=== PATIENT | female | born 1975 | race American Indian/Alaskan Native ===

== ENCOUNTER 2017-11-03 03:11 | Observation (INO) | payer OTHER ==
[2017-11-03 04:59] LABS: Basophils % (Auto) 0.1 % (0.0-1.8); Lymphocytes # (Auto) 1.4 K/mm3 (1.2-5.4); Lymphocytes % (Auto) 7.1 % (13.4-35.0); Mean Corpuscular HGB Conc 32 % (30-34); Mean Corpuscular Volume 80 fl (79-97); Monocytes # (Auto) 0.8 K/mm3 (0.0-0.8); Monocytes % (Auto) 3.8 % (0.0-7.3); Platelet Count 330 K/mm3 (140-440); Red Blood Count 2.31 M/mm3 (3.65-5.03)
[2017-11-03] MEDS ORDERED: NACL 0.9% 1000 ML 1,000 ML IV ONE (05:20)
[2017-11-03 05:31] LABS: Hematocrit 18.5 % (30.3-42.9); Hemoglobin 5.8 gm/dl (10.1-14.3); Mean Corpuscular Hemoglobin 25 pg (28-32); Red Cell Distribution Width 21.2 % (13.2-15.2)
[2017-11-03] MEDS ORDERED: NACL 0.9% 500 ML 500 ML IV ONE (07:06)
[2017-11-03 08:46] LABS: HCG Qualitative,Urine Negative (Negative)
[2017-11-03 08:50] LABS: Bacteria,Urine 4+ /HPF (Negative); Bilirubin,Urine NEG (Negative); Blood,Urine LG (Negative); Color,Urine Red (Yellow); Mucus,Urine FEW /HPF; Urobilinogen,Urine < 2.0 mg/dL (<2.0)
[2017-11-03 08:53] LABS: RBC,Urine > 182.0 /HPF (0.0-6.0); WBC,Urine > 182.0 /HPF (0.0-6.0)
--- NOTE | 2017-11-03 09:19 | Emergency Department Report ---
ED Female HPI - General Chief complaint: Vaginal Bleeding Stated complaint: LOW BP/VAGINAL BLEEDING Time Seen by Provider: 11/03/17 06:45 Source: patient, EMS Mode of arrival: Stretcher Limitations: No Limitations - History of Present Illness Initial comments: Has had heavy vaginal bleeding for the past 3 days. Today, patient with a 1-1/ 2 packs of the super Maxi pads. The vaginal bleeding is bright red. She has already passed out a couple times today. She was started on a new oral contraceptive a couple weeks ago to help with the symptoms. She does have fibroids. Has a history of heavy menstrual periods, but this is worse than usual. Not on blood thinners. - Related Data Home Medications Medication Instructions Recorded Confirmed Last Taken Ferrous Sulfate 325 mg PO DAILY 11/03/17 11/03/17 Unknown Ibuprofen 800 mg PO Q6H 11/03/17 11/03/17 Unknown Allergies Allergy/AdvReac Type Severity Reaction Status Date / Time No Known Allergies Allergy Verified 11/03/17 03:57 ED Review of Systems ROS: Stated complaint: LOW BP/VAGINAL BLEEDING Other details as noted in HPI Comment: All other systems reviewed and negative Constitutional: malaise, weakness Genitourinary: other (vaginal bleeding) ED Past Medical Hx - Past Medical History Previous Medical History?: Yes Additional medical history: Anemia. uterine fibroids - Surgical History Past Surgical History?: No - Social History Smoking Status: Never Smoker Substance Use Type: Alcohol - Medications Home Medications: Home Medications Medication Instructions Recorded Confirmed Last Taken Type Ferrous Sulfate 325 mg PO DAILY 11/03/17 11/03/17 Unknown History Ibuprofen 800 mg PO Q6H 11/03/17 11/03/17 Unknown History ED Physical Exam - General Limitations: No Limitations General appearance: alert, in no apparent distress - Head Head exam: Present: atraumatic, normocephalic - Eye Eye exam: Present: normal appearance Pupils: Present: other (pale conjunctiva) - ENT ENT exam: Present: mucous membranes moist - Neck Neck exam: Present: normal inspection - Respiratory Respiratory exam: Present: normal lung sounds bilaterally. Absent: respiratory distress - Cardiovascular Cardiovascular Exam: Present: regular rate, normal rhythm, other (delayed cap refill). Absent: systolic murmur, diastolic murmur, rubs, gallop - GI/Abdominal GI/Abdominal exam: Present: soft, normal bowel sounds. Absent: tenderness - Speculum exam: Present: vaginal bleeding Bi-manual exam: Present: uterine tenderness - Extremities Exam Extremities exam: Present: normal inspection - Back Exam Back exam: Present: normal inspection - Neurological Exam Neurological exam: Present: alert, oriented X3 - Psychiatric Psychiatric exam: Present: normal affect, normal mood - Skin Skin exam: Present: warm, dry, intact, normal color. Absent: rash ED Course Vital Signs 11/03/17 11/03/17 11/03/17 04:59 05:01 05:07 Temperature 98 F Pulse Rate 95 H 93 H 92 H Respiratory 20 17 18 Rate Blood Pressure 111/72 Blood Pressure 111/72 [Left] O2 Sat by Pulse 94 90 97 Oximetry 11/03/17 11/03/17 11/03/17 05:15 05:19 05:22 Temperature Pulse Rate 91 H 98 H Respiratory 20 16 16 Rate Blood Pressure 113/72 Blood Pressure 113/72 [Left] O2 Sat by Pulse 94 98 98 Oximetry 11/03/17 11/03/17 11/03/17 05:30 05:46 06:00 Temperature Pulse Rate 104 H 103 H 115 H Respiratory 21 12 22 Rate Blood Pressure 115/72 115/72 123/57 Blood Pressure [Left] O2 Sat by Pulse 98 100 100 Oximetry 11/03/17 11/03/17 11/03/17 06:16 06:30 08:23 Temperature Pulse Rate 115 H 106 H 118 H Respiratory 18 19 16 Rate Blood Pressure 123/57 131/63 Blood Pressure 101/56 [Left] O2 Sat by Pulse 100 100 100 Oximetry 11/03/17 12:34 Temperature 99.2 F Pulse Rate 88 Respiratory 16 Rate Blood Pressure Blood Pressure 102/58 [Left] O2 Sat by Pulse 100 Oximetry ED Medical Decision Making - Lab Data Result diagrams: 11/03/17 04:31 - Medical Decision Making 41-year-old female with past history of anemia, uterine fibroids presents to the ER with vaginal bleeding and syncope. On presentation, patient's hypotensive with a systolic blood pressure in the 70s. She is tachycardic. Given history of vaginal bleeding, it is concerning for hemorrhagic shock. Patient is given a liter IV fluids. Hemoglobin was 6. Patient's baseline is 8. She has been ordered 2 units of blood. Pelvic exam shows multiple dark red blood clots. Once it was cleared, age with minimal vaginal bleeding. Critical care attestation.: If time is entered above; I have spent that time in minutes in the direct care of this critically ill patient, excluding procedure time. ED Disposition Clinical Impression: Menorrhagia, Hemorrhagic shock, Anemia Disposition: OP ADMIT IP TO THIS HOSP Is pt being admited?: Yes Does the pt Need Aspirin: No Condition: Stable
--- NOTE | 2017-11-03 11:53 | History and Physical Report ---
History of Present Illness Date of examination: 11/03/17 Date of admission: 11/03/17 10:09 Chief complaint: Heavy vaginal bleeding, hypotension History of present illness: Very pleasant morbidly obese 41-year-old female patient with history of fibroid uterus and menorrhagia follows with private ASSISTANT SURVEYOR, with history of fibroid uterus presented to the emergency room with heavy vaginal bleeding , hypotension and generalized weakness Patient was initially evaluated, noted to have severe anemia Admitted to the hospital for blood transfusion and for ASSISTANT SURVEYOR evaluation Patient complains of generalized weakness and mild headache Denies dizziness syncope or near syncope Did not receive blood transfusions in the past Denies chest pain , shortness of breath or cough Past History Past Medical History: anemia, other (menorrhagia, fibroid uterus) Past Surgical History: No surgical history Social history: lives with family. denies: smoking, alcohol abuse, prescription drug abuse Family history: hypertension Medications and Allergies Allergies Allergy/AdvReac Type Severity Reaction Status Date / Time No Known Allergies Allergy Verified 11/03/17 03:57 Home Medications Medication Instructions Recorded Confirmed Last Taken Type Ferrous Sulfate 325 mg PO DAILY 11/03/17 11/03/17 Unknown History Ibuprofen 800 mg PO Q6H 11/03/17 11/03/17 Unknown History Review of Systems Constitutional: fatigue, weakness, no weight loss, no weight gain Ears, nose, mouth and throat: no nasal congestion, no nasal discharge Cardiovascular: lightheadedness, no chest pain, no orthopnea, no palpitations, no shortness of breath Respiratory: no cough, no shortness of breath Gastrointestinal: no abdominal pain, no nausea, no vomiting Genitourinary Female: menorrhagia, other (heavy vaginal bleeding) Menstruation: currently menstrual Musculoskeletal: no myalgias, no arthritis Integumentary: no rash, no lesions Neurological: weakness, other (Gen. weakness) Psychiatric: no anxiety, no depression Endocrine: no cold intolerance, no heat intolerance, no polydipsia, no polyuria Hematologic/Lymphatic: no easy bruising, no easy bleeding Allergic/Immunologic: no urticaria, no allergic rhinitis Exam - Constitutional Vitals: Temp Pulse Resp BP Pulse Ox 98 F 118 H 16 101/56 100 11/03/17 05:07 11/03/17 08:23 11/03/17 08:23 11/03/17 08:23 11/03/17 08:23 General appearance: Present: no acute distress, well-nourished, obese (morbidly obese) - EENT Eyes: Present: PERRL, EOM intact - Neck Neck: Present: supple, normal ROM - Respiratory Respiratory effort: normal Respiratory: bilateral: diminished, negative: rales, rhonchi, wheezing - Cardiovascular Rhythm: regular Heart Sounds: Present: S1 & S2 - Extremities Extremities: no ischemia, No edema - Abdominal General gastrointestinal: Present: soft, non-tender, non-distended, normal bowel sounds - Integumentary Integumentary: Present: clear, warm, pale - Musculoskeletal Musculoskeletal: strength equal bilaterally, generalized weakness - Psychiatric Psychiatric: appropriate mood/affect, cooperative - Neurologic Neurologic: CNII-XII intact, moves all extremities Results - Labs CBC & Chem 7: 11/03/17 04:31 Labs: Abnormal lab results 11/03/17 11/03/17 11/03/17 Range/Units 04:31 04:45 08:30 WBC 20.0 H (4.5-11.0) K/mm3 RBC 2.31 L (3.65-5.03) M/mm3 Hgb 5.8 L* (10.1-14.3) gm/dl Hct 18.5 L* (30.3-42.9) % MCH 25 L (28-32) pg RDW 21.2 H (13.2-15.2) % Lymph % (Auto) 7.1 L (13.4-35.0) % Seg Neutrophils % 89.0 H (40.0-70.0) % Seg Neutrophils # 17.8 H (1.8-7.7) K/mm3 Urine WBC (Auto) > 182.0 H (0.0-6.0) /HPF Crossmatch See Detail Assessment and Plan --Acute blood loss anemia; Type and cross and transfuse 2 units of PRBC Closely monitor H&H and transfuse additional when necessary --Hypotension; probably secondary to hypovolemia and bleeding Blood transfusion, IV fluids, closely monitor --Menorrhagia; patient has active vaginal bleeding Supportive care, ASSISTANT SURVEYOR evaluation and recommendations Consider Provera daily if needed --History of uterine fibroids; ASSISTANT SURVEYOR evaluation inpatient versus outpatient --Iron deficiency anemia; ferrous sulfate twice a day --DVT prophylaxis; SCDs Follow ASSISTANT SURVEYOR evaluation and recommendations Closely monitor the patient and adjust the management as needed
[2017-11-03] MEDS ORDERED: AMBIEN PO PRN (13:56)
--- NOTE | 2017-11-03 14:14 | Consultation ---
History of Present Illness Consult date: 11/03/17 Reason for consult: menorrhagia History of present illness: Asked to see this 41 y/o G0 admitted for heavy vaginal bleeding. Essential hx is patient with known hx of AUB/HMB due to fibroids. She has an OBGYN and was previously worked up for surgery but lost her insurance. She is nowing seeing a new OBGYN in [facility] (Dr. Jennifer Mccarthy?) and is being worked up for surgery. She presented to the ED due to heavy VB as above x ~ 48 hrs. In the ED, her hemoglobin was ~ 6. She is being admitted for PRBC transfusion. On the floor, her VB has markedly reduced. She has very mild flow now. 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 denies: chlamydia, gonorrhea, hepatitis B, hepatitis C, HIV, syphilis, trichomonas Social history: single, full code. denies: smoking Medications and Allergies Allergies Allergy/AdvReac Type Severity Reaction Status Date / Time No Known Allergies Allergy Verified 11/03/17 03:57 Home Medications Medication Instructions Recorded Confirmed Last Taken Type Ferrous Sulfate 325 mg PO DAILY 11/03/17 11/03/17 Unknown History Ibuprofen 800 mg PO Q6H 11/03/17 11/03/17 Unknown History Active Meds: Active Medications Famotidine (Pepcid) 20 mg PO QDAY PEARL Ferrous Sulfate (Feosol) 325 mg PO QDAY PEARL Medroxyprogesterone Acetate (Provera) 10 mg PO QDAY PEARL Pantoprazole (Protonix) 40 mg PO QDAY PEARL Zolpidem Tartrate (Ambien) 5 mg PO QHS PRN PRN Reason: Sleep Review of Systems Constitutional: no fever Cardiovascular: no chest pain, no orthopnea, no syncope, no shortness of breath , no dyspnea on exertion, no high blood pressure Respiratory: no cough, no cough with sputum Gastrointestinal: no abdominal pain, no nausea, no vomiting, no heartburn, no indigestion Genitourinary: vaginal bleeding, no vaginal discharge, no leakage of fluid - Vital Signs Vital signs: Vital Signs Pulse Resp BP Pulse Ox 95 H 20 111/72 94 11/03/17 04:59 11/03/17 04:59 11/03/17 04:59 11/03/17 04:59 Temp Pulse Resp BP Pulse Ox 99.2 F 88 16 102/58 100 11/03/17 12:34 11/03/17 12:34 11/03/17 12:34 11/03/17 12:34 11/03/17 12:34 - Physical Exam Abdomen: Positive: normal appearance, soft. Negative: distention, tenderness, guarding, rigidity Genitourinary (Female): Positive: normal external genitalia Uterus: Negative: tender Adnexa: both: normal Extremities: Positive: normal Results Result Diagrams: 11/03/17 04:31 Abnormal lab results 11/03/17 11/03/17 11/03/17 Range/Units 04:31 04:45 08:30 WBC 20.0 H (4.5-11.0) K/mm3 RBC 2.31 L (3.65-5.03) M/mm3 Hgb 5.8 L* (10.1-14.3) gm/dl Hct 18.5 L* (30.3-42.9) % MCH 25 L (28-32) pg RDW 21.2 H (13.2-15.2) % Lymph % (Auto) 7.1 L (13.4-35.0) % Seg Neutrophils % 89.0 H (40.0-70.0) % Seg Neutrophils # 17.8 H (1.8-7.7) K/mm3 Urine WBC (Auto) > 182.0 H (0.0-6.0) /HPF Crossmatch See Detail All other labs normal. Assessment and Plan A: 41 y/o G0 with AUB/HMB-L -stable P: -Agree with PRBC transfusion -Patient can be D/kelvin home to follow up with her primary OBGYN -Pls call if bleeding should worsen - Patient Problems (1) Abnormal uterine bleeding (AUB) Current Visit: Yes Status: Acute (2) Fibroids, intramural Current Visit: Yes Status: Acute
[2017-11-03] MEDS: PROTONIX PO SCH (19:30)
--- NOTE | 2017-11-03 20:57 | Ultrasound Report ---
FINAL REPORT EXAM: US PELVIC COMPLETE HISTORY: menorrhagia/?fibroid . LMP 11/01/2017. Vaginal bleeding with fainting. Two week menstruation. Anemia. TECHNIQUE: Ultrasound of the pelvis using transabdominal and transvaginal imaging PRIORS: None. FINDINGS: Uterus: Uterus is enlarged in size and heterogeneous in echogenicity. The uterus measures 13.8 x 8.0 x 7.1 cm in size. There are at least 3 heterogeneous isoechoic focal rounded areas in the uterus. The largest is in the fundus measuring 4.5 x 5.0 x 5.2 cm. The 2nd is in the posterior midbody measuring 1.8 x 2.5 x 2.5 cm. The 3rd is in the lower uterine body anteriorly, possibly within the anterior cervix and measures 4.8 x 2.6 x 3.1 cm. All of these likely represent fibroids. Endometrial stripe: Endometrial stripe is difficult to visualize as it is displaced anteriorly and compressed by the fibroid mentioned above. Ovaries: Both ovaries appear normal in size and echogenicity with normal blood flow bilaterally. The right ovary measures 2.4 x 1.3 x 1.2 cm and the left ovary measures 2.3 x 1.7 x 2.0 cm in size. Other: There is no evidence for solid adnexal mass or free fluid in the cul-de-sac seen. IMPRESSION: 1. Large heterogeneous uterus containing multiple focal fibroids. One of these is probably in the cervical region. 2. Endometrial stripe cannot be adequately visualized due to the presence of the fibroids and displacement.
[2017-11-04 07:11] LABS: Basophils # (Auto) 0.1 K/mm3 (0.0-0.1); Basophils % (Auto) 0.5 % (0.0-1.8); Eosinophils % (Auto) 0.3 % (0.0-4.3); Hemoglobin 6.3 gm/dl (10.1-14.3); Lymphocytes # (Auto) 2.5 K/mm3 (1.2-5.4); Lymphocytes % (Auto) 23.4 % (13.4-35.0); Mean Corpuscular HGB Conc 34 % (30-34); Mean Corpuscular Hemoglobin 28 pg (28-32); Mean Corpuscular Volume 83 fl (79-97); Monocytes # (Auto) 0.7 K/mm3 (0.0-0.8); Platelet Count 223 K/mm3 (140-440); Red Blood Count 2.26 M/mm3 (3.65-5.03)
[2017-11-04 07:23] LABS: Red Cell Distribution Width 20.2 % (13.2-15.2)
[2017-11-04 07:24] LABS: Hematocrit 18.7 % (30.3-42.9)
[2017-11-04 07:43] LABS: BUN/Creatinine Ratio 11; Blood Urea Nitrogen 9 mg/dL (7-17); Calcium 7.4 mg/dL (8.4-10.2); Hemolysis Index 0
[2017-11-04] MEDS ORDERED: K-DUR PO NR (08:18)
--- NOTE | 2017-11-04 08:19 | Progress Note ---
Assessment and Plan Assessment and plan: --Acute blood loss anemia; received 2 units PRBC Hemoglobin improved 5.8 to 6.4,rpt H/H ,transfuse additional 2 units of PRBC To maintain hemoglobin more than 8 --Hypotension; probably secondary to hypovolemia and bleeding Blood transfusion, IV fluids, closely monitor --Menorrhagia; patient has active vaginal bleeding Supportive care, MANHOLE BUILDER evaluated the patient, has no bleeding was noted yesterday Recommended out pt f/u MANHOLE BUILDER, Provera 10 mg daily --History of uterine fibroids; MANHOLE BUILDER evaluated --Iron deficiency anemia; ferrous sulfate twice a day --DVT prophylaxis; SCDs MANHOLE BUILDER re evaluation , as patient does not have any medical problems Recommend transfer to MANHOLE BUILDER service for their evaluation and management Closely monitor the patient and adjust the management as needed History Interval history: Patient seen and examined this morning medical records reviewed Patient admitted with active vaginal bleeding with severe anemia of 5.8 hemoglobin Received 2 units of PRBC, with very little improvement of 6.4 this morning and later 6.1 Patient has profuse continuous vaginal bleeding and passing clots Patient is diaphoretic and hypotensive In mild distress Vital signs reviewed Hospitalist Physical - Constitutional Vitals: Temp Pulse Resp BP Pulse Ox 98.9 F 94 H 16 109/62 100 11/03/17 23:55 11/03/17 23:55 11/03/17 23:55 11/03/17 23:55 11/03/17 23:55 General appearance: Present: mild distress, well-nourished, obese (morbidly obese) - EENT Eyes: Present: PERRL, EOM intact - Neck Neck: Present: supple, normal ROM - Respiratory Respiratory effort: normal Respiratory: bilateral: diminished, negative: rales, rhonchi, wheezing - Cardiovascular Rhythm: regular Heart Sounds: Present: S1 & S2 - Extremities Extremities: no ischemia, No edema - Abdominal General gastrointestinal: soft, non-tender, non-distended - Integumentary Integumentary: Present: clear, warm - Psychiatric Psychiatric: appropriate mood/affect, agitated, other (anxious) - Neurologic Neurologic: moves all extremities Results - Labs CBC & Chem 7: 11/04/17 14:03 11/04/17 14:03 Labs: Laboratory Last Values WBC 10.7 K/mm3 (4.5-11.0) 11/04/17 06:29 RBC 2.26 M/mm3 (3.65-5.03) L 11/04/17 06:29 Hgb 6.3 gm/dl (10.1-14.3) L 11/04/17 06: Hct 18.7 % (30.3-42.9) L* 11/04/17 06: MCV 83 fl (79-97) 11/04/17 06: MCH 28 pg (28-32) 11/04/17 06: MCHC 34 % (30-34) 11/04/17 06:29 RDW 20.2 % (13.2-15.2) H 11/04/17 06:29 Plt Count 223 K/mm3 (140-440) 11/04/17 06: Lymph % (Auto) 23.4 % (13.4-35.0) 11/04/17 06: [place] % (Auto) 7.0 % (0.0-7.3) 11/04/17: Eos % (Auto) 0.3 % (0.0-4.3) 11/04/17 06:29 Baso % (Auto) 0.5 % (0.0-1.8) 11/04/17 06: Lymph # 2.5 K/mm3 (1.2-5.4) 11/04/17: [place] # 0.7 K/mm3 (0.0-0.8) 11/04/17 06: Eos # 0.0 K/mm3 (0.0-0.4) 11/04/17: Baso # 0.1 K/mm3 (0.0-0.1) 11/04/17 06:29 Seg Neutrophils % 68.8 % (40.0-70.0) 11/04/17 06: Seg Neutrophils # 7.3 K/mm3 (1.8-7.7) 11/04/17 06: Sodium 144 mmol/L (137-145) 11/04/17 06:29 Potassium 3.3 mmol/L (3.6-5.0) L 11/04/17 06: Chloride 109.8 mmol/L (98-107) H 11/04/17 06: Carbon Dioxide 23 mmol/L (22-30) 11/04/17 06:29 Anion Gap 15 mmol/L 11/04/17 06:29 BUN 9 mg/dL (7-17) 11/04/17 06:29 Creatinine 0.8 mg/dL (0.7-1.2) 11/04/17 06:29 Estimated GFR > 60 ml/min 11/04/17 06:29 BUN/Creatinine Ratio 11 % 11/04/17 06:29 Glucose 107 mg/dL (65-100) H 11/04/17 06:29 Calcium 7.4 mg/dL (8.4-10.2) L 11/04/17 06:29 HCG, Qual Negative (Negative) 11/03/17 04:45 Urine Color Red (Yellow) 11/03/17 08:30 Urine Turbidity Clear (Clear) 11/03/17 08:30 Urine pH 5.0 (5.0-7.0) 11/03/17 08:30 Ur Specific [place] 1.016 (1.003-1.030) 11/03/17 08:30 Urine Protein 100 mg/dl mg/dL (Negative) 11/03/17 08:30 Urine Glucose (UA) 150 mg/dL (Negative) 11/03/17 08:30 Urine Ketones Neg mg/dL (Negative) 11/03/17 08:30 Urine Blood Lg (Negative) 11/03/17 08:30 Urine Nitrite Neg (Negative) 11/03/17 08:30 Ur Reducing Substances Not Reportable 11/03/17 08:30 Urine Bilirubin Neg (Negative) 11/03/17 08:30 Urine Ictotest Not Reportable 11/03/17 08:30 Urine Urobilinogen < 2.0 mg/dL (<2.0) 11/03/17 08:30 Ur Leukocyte Esterase Mod (Negative) 11/03/17 08:30 Urine WBC (Auto) > 182.0 /HPF (0.0-6.0) H 11/03/17 08:30 Urine RBC (Auto) > 182.0 /HPF (0.0-6.0) 11/03/17 08:30 Urine Bacteria (Auto) 4+ /HPF (Negative) 11/03/17 08:30 Urine WBC Clumps 3+ /HPF 11/03/17 08:30 Urine Mucus Few /HPF 11/03/17 08:30 Urine HCG, Qual Negative (Negative) 11/03/17 08:30 Blood Type O POSITIVE 11/03/17 04:45 Antibody Screen Negative 11/03/17 04:45 Crossmatch See Detail 11/03/17 04:45
[2017-11-04] MEDS ORDERED: PEPCID PO SCH (10:00)
[2017-11-04] MEDS ORDERED: NON-FORMULARY (Ferrous Sulfate [Ferrous Sulfate] 325 MG) PO SCH (10:00)
[2017-11-04] MEDS: FEOSOL PO SCH (10:04)
[2017-11-04] MEDS: PROTONIX PO SCH (10:05)
[2017-11-04 11:11] LABS: Hemoglobin 6.6 gm/dl (10.1-14.3)
[2017-11-04] MEDS ORDERED: NACL 0.9% 500 ML 500 ML IV ONE (12:00)
[2017-11-04] MEDS ORDERED: TYLENOL PO PRN (12:31)
[2017-11-04] MEDS: PROVERA PO SCH (12:34)
[2017-11-04] MEDS ORDERED: NACL 0.9% 250ML 250 ML IV ONE (13:42)
--- NOTE | 2017-11-04 14:02 | Event Note ---
Date: 11/04/17 Responded to the code rapid response Patient had continuous , profuse vaginal bleeding, passing clots, patient was diaphoretic Hypotensive, near syncope, confused, code met was called, patient was given a fluid bolus Already received 2 units of PRBC with very minimal improvement in hemoglobin Third unit running, repeat hemoglobin, 6.1,AUDITING CODER was contacted, discussed in detail with Dr. Mccray [music industry internship] who already saw the patient yesterday, advised IV estrogen 25 one dose Stated that I call Dr. Hardy music industry internship [and call /covering], discussed Dr. Hardy patient's condition and Since patient has no medical issues, I suggested to transfer to AUDITING CODER service. She feels slightly better, blood pressure low normal range Transfuse, additional units of PRBC as needed Close monitoring of H&H Plan of care discussed with the patient's nurse charge nurse
[2017-11-04 14:53] LABS: BUN/Creatinine Ratio 10; Blood Urea Nitrogen 7 mg/dL (7-17); Calcium 7.6 mg/dL (8.4-10.2); Hemolysis Index 0
[2017-11-04 14:55] LABS: Hemoglobin 6.1 gm/dl (10.1-14.3); Mean Corpuscular HGB Conc 32 % (30-34); Mean Corpuscular Hemoglobin 28 pg (28-32); Mean Corpuscular Volume 86 fl (79-97); Platelet Count 254 K/mm3 (140-440); Red Blood Count 2.22 M/mm3 (3.65-5.03); Red Cell Distribution Width 19.9 % (13.2-15.2)
[2017-11-04 14:56] LABS: Hematocrit 19.1 % (30.3-42.9)
--- NOTE | 2017-11-04 15:14 | Progress Note ---
Assessment and Plan - Patient Problems (1) Severe anemia Current Visit: Yes Status: Acute Plan to address problem: 1. s/p Provera 10mg 2. Estrogen 25mg IV Q6hrs x 2 doses begin 4pm 3. NPO during evaluation 4. Continue blood transfusion (s/p 3 units, 1 unit planned). Consider Lasix. 5. Hgb at midnight 6. Discussed treatments with patient: Acute: D&C, uterine artery embolization, hysterectomy Conservative (once stable): uterine artery embolization - outpatient, endometrial ablation, IUD, hysterectomy-outpatient 7. Will evaluate patient in AM to determine if need surgical intervention. Allow to eat now, NPO at midnight. Subjective Date of service: 11/04/17 Principal diagnosis: severe anemia, uterine fibroids Interval history: S: Called to patient bedside due to previous code, hypotension and severe anemia. She is now s/p 3units pRBCs and Hgb 7--> 6.1 She reports today upon intended discharge her bleeding had slowed down. She does not desire fertility, however, desires embolization vs ablation before hysterectomy with her OB. 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 Objective - Exam Narrative Exam: Sterile speculum exam: Golf ball sized clot present in vaginal vault. Normal female genitalia - Constitutional Vitals: Vital Signs - 12hr 11/04/17 11/04/17 11/04/17 07:41 12:50 13:05 Temperature 99.1 F 98.4 F 98.4 F Pulse Rate 86 96 H 93 H Respiratory 22 20 20 Rate Blood Pressure 108/61 108/72 100/58 O2 Sat by Pulse 99 Oximetry 11/04/17 11/04/17 11/04/17 13:35 14:04 14:05 Temperature 98.7 F 98.7 F Pulse Rate 80 73 73 Respiratory 20 20 20 Rate Blood Pressure 98/71 112/54 112/54 O2 Sat by Pulse 100 100 Oximetry 11/04/17 14:35 Temperature 98.6 F Pulse Rate 96 H Respiratory 20 Rate Blood Pressure 107/57 O2 Sat by Pulse 98 Oximetry General appearance: Present: other (appears pale) - Labs CBC & Chem 7: 11/04/17 14:03 11/04/17 14:03 Labs: Abnormal lab results 11/03/17 11/04/17 11/04/17 Range/Units 04:45 06:29 06:29 WBC (4.5-11.0) K/mm3 RBC 2.26 L (3.65-5.03) M/mm3 Hgb 6.3 L (10.1-14.3) gm/dl Hct 18.7 L* (30.3-42.9) % RDW 20.2 H (13.2-15.2) % Potassium 3.3 L (3.6-5.0) mmol/L Chloride 109.8 H (98-107) mmol/L Glucose 107 H (65-100) mg/dL Calcium 7.4 L (8.4-10.2) mg/dL Crossmatch See Detail 11/04/17 11/04/17 11/04/17 Range/Units 09:59 14:03 14:03 WBC 15.4 H (4.5-11.0) K/mm3 RBC 2.22 L (3.65-5.03) M/mm3 Hgb 6.6 L 6.1 L (10.1-14.3) gm/dl Hct 20.0 L 19.1 L* (30.3-42.9) % RDW 19.9 H (13.2-15.2) % Potassium (3.6-5.0) mmol/L Chloride (98-107) mmol/L Glucose 168 H (65-100) mg/dL Calcium 7.6 L (8.4-10.2) mg/dL Crossmatch
[2017-11-04] MEDS ORDERED: PREMARIN IV ONE ×3 (16:00→22:00)
[2017-11-04] MEDS ORDERED: NACL 0.9% 500 ML 500 ML IV SCH (17:25)
[2017-11-04 19:01] LABS: % Iron Saturation 13.48 %
[2017-11-04] MEDS ORDERED: ZOFRAN IV PRN (19:56)
[2017-11-05 07:10] LABS: Basophils # (Auto) 0.1 K/mm3 (0.0-0.1); Basophils % (Auto) 0.7 % (0.0-1.8); Eosinophils % (Auto) 0.1 % (0.0-4.3); Hematocrit 23.6 % (30.3-42.9); Hemoglobin 7.7 gm/dl (10.1-14.3); Lymphocytes # (Auto) 2.5 K/mm3 (1.2-5.4); Lymphocytes % (Auto) 14.4 % (13.4-35.0); Mean Corpuscular HGB Conc 33 % (30-34); Mean Corpuscular Hemoglobin 28 pg (28-32); Mean Corpuscular Volume 86 fl (79-97); Monocytes # (Auto) 1.4 K/mm3 (0.0-0.8); Platelet Count 229 K/mm3 (140-440); Red Blood Count 2.74 M/mm3 (3.65-5.03); Red Cell Distribution Width 17.5 % (13.2-15.2)
[2017-11-05 07:18] LABS: BUN/Creatinine Ratio 12; Blood Urea Nitrogen 7 mg/dL (7-17); Calcium 7.5 mg/dL (8.4-10.2); Hemolysis Index 19; Iron 38 ug/dL (37-170); Total Iron Binding Capacity 252 mcg/dL (250-450)
[2017-11-05 07:48] VITALS: BP 123/75
--- NOTE | 2017-11-05 10:24 | Discharge Summary ---
Providers - Providers Date of Admission: 11/03/17 10:09 Date of discharge: 11/05/17 Attending physician: JOSE FLORES 11/03/17 11:58 Consult to Physician [CONS] Routine Comment: Consulting Provider: WILLIAMS SOLARES Physician Instructions: Reason For Exam: Severe anemia/vaginal bleeding Primary care physician: BATCH ROOM TECHNICIAN Hospitalization Condition: Stable Disposition: DC-01 TO HOME OR SELFCARE Time spent for discharge: 31 min Core Measure Documentation - Palliative Care Palliative Care/ Comfort Measures: Not Applicable - Core Measures Any of the following diagnoses?: none Exam - Constitutional Vitals: Temp Pulse Resp BP Pulse Ox 98.0 F 84 20 123/75 98 11/05/17 07:41 11/05/17 07:41 11/05/17 07:41 11/05/17 07:41 11/05/17 07:41 General appearance: Present: no acute distress, well-nourished - EENT Eyes: Present: PERRL, EOM intact - Neck Neck: Present: supple, normal ROM - Respiratory Respiratory effort: normal Respiratory: bilateral: diminished, negative: rales, rhonchi, wheezing - Cardiovascular Rhythm: regular Heart Sounds: Present: S1 & S2 - Extremities Extremities: no ischemia, No edema Peripheral Pulses: within normal limits - Abdominal General gastrointestinal: Present: soft, non-tender, non-distended - Integumentary Integumentary: Present: clear, warm - Musculoskeletal Musculoskeletal: strength equal bilaterally - Psychiatric Psychiatric: appropriate mood/affect, cooperative - Neurologic Neurologic: CNII-XII intact, moves all extremities Plan Activity: no restrictions Diet: regular Additional Instructions: f/u private 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
[2017-11-05] MEDS: PROVERA PO SCH (11:25)
[2017-11-05] MEDS: PROTONIX PO SCH (11:30)
[2017-11-05] MEDS: FEOSOL PO SCH (11:30)
== END 2017-11-05 13:00 | disposition home or self-care (01) ==
LOC: ED 03:11 → 4A 10:09 → 3A 21:04
PROVIDERS: ADMIT Internal Medicine; ATTEND Internal Medicine
DX: D50.0 Iron deficiency anemia secondary to blood loss (chronic) (principal); N92.0 Excessive and frequent menstruation with regular cycle; I95.9 Hypotension, unspecified
CPT/HCPCS: 36415; 36430; 76830; 76856; 80048; 81001; 81025; 83550; 84703; 85014; 85018; 85025; 85027; 86850; 86900; 86901; 86920; 96374; 96375; 99285; G0378; J1410; J2405; J7030; J7040; P9016